=== PATIENT | female | born 1965 | race Caucasian/White ===

== ENCOUNTER → 2020-09-11 | Outpatient (CLI) | LOC: LABNPT 11:01 | PROVIDERS: ATTEND Internal Medicine | DX: Z20.822 Contact with and (suspected) exposure to COVID-19 (principal) | CPT/HCPCS: 87636 ==

== ENCOUNTER 2022-02-19 05:47 | Outpatient (CLI) | payer SELFPAY ==
[~2022-02-19] VITALS: Ht 162.6 cm; Wt 72.6 kg
[2022-02-21] MEDS ORDERED: CETI10TA49 PO (12:26)
[2022-02-21] MEDS ORDERED: ASPI-1238 PO (12:26)
== END 2022-02-21 12:32 | disposition home or self-care (01) ==
LOC: PREOP 05:47
PROVIDERS: ATTEND Surgery
DX: Z01.818 Encounter for other preprocedural examination (principal)

== ENCOUNTER 2022-02-26 11:30 | Day surgery (SDC) | payer SELFPAY ==
[~2022-02-26] VITALS: Ht 163 cm; Wt 72.6 kg
[2022-02-26] VITALS (7 sets, daily range): BP systolic 92–125; BP diastolic 55–77
[~2022-02-26 11:30] MED LIST: ASPI-1238 PO; CETI10TA49 PO
[2022-02-26] MEDS ORDERED: LACTATED RINGERS 1,000 ML IV STA (11:32)
[2022-02-26] MEDS ORDERED: ceFAZolin INJECTION 2,000 MG ONE (12:15)
[2022-02-26] MEDS ORDERED: ceFAZolin INJECTION 2,000 MG in NS (IVPB) 50 ML IV ONE (12:15)
[2022-02-26] MEDS ORDERED: NS (IVPB) 50 ML ONE (12:17)
[2022-02-26] MEDS ORDERED: PROPOFOL INJECTION 50 ML IV ONE (13:58)
--- NOTE | 2022-02-26 14:45 | Discharge Inst-Simple/Standard ---
Discharge Inst-Standard Patient Instructions/Follow Up Plan of Care/Instructions/FU: Follow-up with Dr. Fried in 2 weeks Activity as Tolerated: Yes Discharge Diet: No Restrictions, Regular Diet ELDA FRIED DO Feb 26, 2022 14:45
--- NOTE | 2022-02-26 14:48 | Anesthesia-General Post-Op ---
MAC Patient Condition Mental Status/LOC: Same as Preop Cardiovascular: Satisfactory Nausea/Vomiting: Absent Respiratory: Satisfactory Pain: Controlled Complications: Absent Post Op Complications Complications None Follow Up Care/Instructions Patient Instructions None needed. Anesthesiology Discharge Order Discharge Order Patient is doing well, no complaints, stable vital signs, no apparent adverse anesthesia problems. No complications reported per nursing. LI BAILEY CRNA Feb 26, 2022 14:48
--- NOTE | 2022-02-27 02:11 | OPERATIVE REPORT ---
DATE OF SERVICE: 02/26/2022 PREOPERATIVE DIAGNOSIS: History of polyps. POSTOPERATIVE DIAGNOSES: Colon polyps, diverticulosis. PROCEDURE: Colonoscopy with hot biopsy polypectomy x1, snare polypectomy x1. SURGEON: Elda Fried DO. ANESTHESIA: Per [employer]. ESTIMATED BLOOD LOSS: None. COMPLICATIONS: None. INDICATIONS The patient is a 56-year-old female, needing screening colonoscopy. She has a history of polyps. She understands risks and benefits of procedure and wishes to proceed. Consent was signed and in the chart. DESCRIPTION OF PROCEDURE: The patient was taken to endoscopy suite, placed in the left lateral recumbent position. Timeout was performed. Digital rectal exam was performed. No palpable polyps, masses or ulcerations. Scope was inserted in the rectum and advanced all the way to cecum with minimal difficulty. Prep was adequate . The scope was then slowly retracted back. Small polyp noted in the cecum, which hot biopsy polypectomy was performed. Scope was then continued to slowly retract back. No polyps, masses, ulcerations within the ascending colon and in the transverse colon a larger polyp was present, which snare polypectomy was performed. This was obtained for pathology. Scope was then continuously retracted back. No polyps, masses, ulcerations in remainder of the transverse, descending and sigmoid colon. Through the sigmoid colon, diverticula were present. Once in the rectum, scope was retroflexed noting no other pathology. Scope was returned to its normal position, slowly withdrawn until completely removed. The patient tolerated the procedure well with no complications. She was taken to recovery room in stable condition. RECOMMENDATIONS: The patient will need a repeat colonoscopy in 3 years for reevaluation. Any issues before that be seen at that time. Job ID: [id number] DocumentID: [id number] Dictated Date: 02/26/2022 15:01:20 [employer] Date: 02/27/2022 02:09:00 Dictated By: ELDA FRIED DO
== END 2022-02-26 15:25 | disposition home or self-care (01) ==
LOC: ENDO 11:30
PROVIDERS: ATTEND Surgery
DX: Z12.11 Encounter for screening for malignant neoplasm of colon (principal); D12.3 Benign neoplasm of transverse colon; K63.5 Polyp of colon; K57.30 Diverticulosis of large intestine without perforation or abscess without bleeding
CPT/HCPCS: 88305